=== PATIENT | male | born 1955 | race Caucasian/White ===

== ENCOUNTER 2018-01-24 15:18 | Emergency (ER) | payer SELFPAY ==
[~2018-01-24] VITALS: Ht 172.7 cm; Wt 76.0 kg
[~2018-01-24 15:18] MED LIST: Z.0.NO CURRENT MEDS
[2018-01-24 15:29] VITALS: BP 118/74; PULSE 75; RESP 18; TEMP 98.6; O2SAT 99
[2018-01-24] MEDS ORDERED: SODIUM CHLOR 0.9% 1000 ML INJ 1,000 ML IV SCH (16:57)
[2018-01-24] MEDS ORDERED: LIDOCAINE VISCOUS 2% SOLN 15 ML UDC PO ONE (17:00)
[2018-01-24] MEDS ORDERED: FAMOTIDINE 20 MG/2 ML VIAL IV PUSH ONE (17:00)
[2018-01-24] MEDS ORDERED: ALUMINUM/MAGNESIUM/SIMETH 30 ML CUP PO ONE (17:00)
[2018-01-24] MEDS ORDERED: ONDANSETRON HCL 4 MG/2 ML VIAL IVP ONE (17:00)
[2018-01-24] MEDS ORDERED: SODIUM CHLORIDE 0.9% FLUSH 10 ML FLUSH IV FLUSH PRN (17:00)
--- NOTE | 2018-01-24 17:06 | PD ---
HPI Chief Complaint: Abdominal Pain Time Seen by Provider: 16:51 Travel History International Travel<30 days: No Contact w/Intl Traveler<30days: No Traveled to known affect area: No History of Present Illness HPI 62-year-old homeless gentleman presents emergency department via EMS with complaints of abdominal pain and rash for 3 weeks. Patient is a chronic alcoholic. He states he drinks 4 beers daily. Patient smells of feces and urine. He denies fever, chills, or vomiting. No reports of diarrhea. No reports of acute wounds. Patient uses a walker to ambulate. Currently his stomach is not hurting. He has no known drug allergies. PFSH Past Medical History Arthritis: Yes Asthma: No Autoimmune Disease: No Blood Disorders: No Anxiety: No Depression: No Heart Rhythm Problems: No Cancer: No Cardiovascular Problems: Yes High Cholesterol: No Chemotherapy: No Chest Pain: No Congestive Heart Failure: No COPD: No Cerebrovascular Accident: No Diabetes: No Endocrine: No Glaucoma: No Genitourinary: No Headaches: No Hypertension: No Immune Disorder: No Kidney Stones: No Musculoskeletal: Yes (LEFT LEG WEAK) Neurologic: Yes Psychiatric: No Reproductive: No Respiratory: No Migraines: No Myocardial Infarction: Yes Radiation Therapy: No Renal Failure: No Seizures: Yes Sickle Cell Disease: No Thyroid Disease: No ?: Not Past Surgical History Abdominal Surgery: No AICD: No Arteriovenous Shunt: No Cardiac Surgery: No Ear Surgery: No Endocrine Surgery: No Eye Surgery: No Genitourinary Surgery: No Gynecologic Surgery: No Insulin Pump: No Joint Replacement: No Oral Surgery: No Pacemaker: No Thoracic Surgery: No Other Surgery: Yes (LEFT LEG SURGERY) Social History Alcohol Use: Yes (2-3 BEER DAILY) Tobacco Use: Yes (CIGARS 5 DAY) Substance Use: No Allergies-Medications (Allergen,Severity, Reaction): Coded Allergies: No Known Allergies (Verified Adverse Reaction, Unknown, 01/24/18) Reported Meds & Prescriptions Reported Meds & Active Scripts Active No Active Prescriptions or Reported Medications Review of Systems ROS Limitations: Intoxication, Poor Historian Except as stated in HPI: all other systems reviewed are Neg General / Constitutional: No: Fever Eyes: No: Visual changes HENT: No: Headaches Cardiovascular: No: Chest Pain or Discomfort Respiratory: No: Shortness of Breath Gastrointestinal: Positive: Abdominal Pain, No: Nausea, Vomiting, Diarrhea, Constipation, Indigestion, Dysphagia, Loss of Appetite Genitourinary: No: Urgency, Frequency, Dysuria Musculoskeletal: No: Pain Skin: Positive Rash, Positive Itching (See history of present illness) Neurologic: No: Weakness Psychiatric: No: Depression Endocrine: No: Polydipsia Hematologic/Lymphatic: No: Easy Bruising Physical Exam Narrative GENERAL: Patient appears intoxicated. He is disheveled and covered with urine and feces. SKIN: Warm and dry. Patient has obvious infestation of scabies with excoriations consistent. No active signs of cellulitis noted HEAD: Atraumatic. Normocephalic. EYES: Pupils equal and round. No scleral icterus. No injection or drainage. ENT: No nasal bleeding or discharge. Mucous membranes pink and moist. Pharynx is clear. NECK: Trachea midline. Supple CARDIOVASCULAR: Regular rate and rhythm. RESPIRATORY: No accessory muscle use. Clear to auscultation. Breath sounds equal bilaterally. GASTROINTESTINAL: Abdomen soft, mild epigastric tenderness, nondistended. No ascites. No CVA tenderness. Hepatic and splenic margins not palpable. MUSCULOSKELETAL: Extremities without clubbing, cyanosis, or edema. No obvious deformities. NEUROLOGICAL: Awake and alert. No obvious cranial nerve deficits. Motor grossly within normal limits. Five out of 5 muscle strength in the arms and legs. Normal speech. PSYCHIATRIC: Appropriate mood and affect; insight and judgment normal. Data Data Last Documented VS Vital Signs Date Time Temp Pulse Resp B/P (MAP) Pulse Ox O2 Delivery O2 Flow Rate FiO2 01/24/18 15:29 98.6 75 18 118/74 (89) 99 Orders Orders Complete Blood Count With Diff (01/24/18 16:57) Comprehensive Metabolic Panel (01/24/18 16:57) Lipase (01/24/18 16:57) Lactic Acid (01/24/18 16:57) Prothrombin Time / Inr (Pt) (01/24/18 16:57) Act Partial Throm Time (Ptt) (01/24/18 16:57) Urinalysis - C+S If Indicated (01/24/18 16:57) Abdomen, Flat & Upright (01/24/18 ) Iv Access Insert/Monitor (01/24/18 16:57) Ecg Monitoring (01/24/18 16:57) Oximetry (01/24/18 16:57) Ondansetron Inj (Zofran Inj) (01/24/18 17:00) Sodium Chlor 0.9% 1000 Ml Inj (Ns 1000 M (01/24/18 16:57) Sodium Chloride 0.9% Flush (Ns Flush) (01/24/18 17:00) Electrocardiogram (01/24/18 16:57) Famotidine Inj (Pepcid Inj) (01/24/18 17:00) Al-Mag Hy-Si 40-40-4 Mg/Ml Liq (Mag-Al P (01/24/18 17:00) Lidocaine 2% Viscous (Xylocaine 2% Visco (01/24/18 17:00) Alcohol (Ethanol) (01/24/18 16:57) Alcohol Withdrawal Asmt-Ciwa Q4HX18 (01/24/18 17:25) Flumazenil Inj (Romazicon Inj) (01/24/18 17:30) Lorazepam (Ativan) (01/24/18 17:30) Lorazepam Inj (Ativan Inj) (01/24/18 17:30) Lorazepam (Ativan) (01/24/18 17:30) Lorazepam Inj (Ativan Inj) (01/24/18 17:30) Lorazepam Inj (Ativan Inj) (01/24/18 17:30) Lorazepam Inj (Ativan Inj) (01/24/18 17:30) Magnesium (Mg) (01/24/18 18:13) Labs Laboratory Tests Test 01/24/18 17:20 01/24/18 17:22 01/24/18 18:00 White Blood Count 9.1 TH/MM3 Red Blood Count 3.17 MIL/MM3 Hemoglobin 11.0 GM/DL Hematocrit 32.5 % Mean Corpuscular Volume 102.6 FL Mean Corpuscular Hemoglobin 34.6 PG Mean Corpuscular Hemoglobin Concent 33.7 % Red Cell Distribution Width 15.6 % Platelet Count 227 TH/MM3 Mean Platelet Volume 8.2 FL Neutrophils (%) (Auto) 63.9 % Lymphocytes (%) (Auto) 23.9 % Monocytes (%) (Auto) 9.1 % Eosinophils (%) (Auto) 2.4 % Basophils (%) (Auto) 0.7 % Neutrophils # (Auto) 5.8 TH/MM3 Lymphocytes # (Auto) 2.2 TH/MM3 Monocytes # (Auto) 0.8 TH/MM3 Eosinophils # (Auto) 0.2 TH/MM3 Basophils # (Auto) 0.1 TH/MM3 CBC Comment DIFF FINAL Differential Comment Prothrombin Time 10.2 SEC Prothromb Time International Ratio 1.0 RATIO Activated Partial Thromboplast Time 25.8 SEC Blood Urea Nitrogen 21 MG/DL Creatinine 0.95 MG/DL Random Glucose 85 MG/DL Total Protein 8.1 GM/DL Albumin 3.1 GM/DL Calcium Level 8.5 MG/DL Alkaline Phosphatase 70 U/L Aspartate Amino Transf (AST/SGOT) 19 U/L Alanine Aminotransferase (ALT/SGPT) 17 U/L Total Bilirubin 0.2 MG/DL Sodium Level 139 MEQ/L Potassium Level 4.3 MEQ/L Chloride Level 108 MEQ/L Carbon Dioxide Level 25.3 MEQ/L Anion Gap 6 MEQ/L Estimat Glomerular Filtration Rate 80 ML/MIN Magnesium Level 1.9 MG/DL Lipase 134 U/L Ethyl Alcohol Level LESS THAN 3 MG/DL Lactic Acid Level 1.3 mmol/L Urine Color YELLOW Urine Turbidity CLEAR Urine pH 6.5 Urine Specific [place] 1.024 Urine Protein TRACE mg/dL Urine Glucose (UA) NEG mg/dL Urine Ketones NEG mg/dL Urine Occult Blood NEG Urine Nitrite NEG Urine Bilirubin NEG Urine Urobilinogen 2.0 MG/DL Urine Leukocyte Esterase NEG Urine WBC 2 /hpf Urine Hyaline Casts 1 /lpf Urine Mucus FEW /lpf Microscopic Urinalysis Comment CULT NOT INDICATED MDM Medical Decision Making Medical Screen Exam Complete: Yes Emergency Medical Condition: Yes Medical Record Reviewed: Yes Differential Diagnosis Chronic alcohol abuse. Scabies. Gastritis. Narrative Course Patient appears in no obvious distress Labs ordered including CBC, CMP, magnesium, lipase, lactic acid, serum alcohol level and urinalysis. IV access is obtained and the patient is given 4 mg Zofran, 20 mg Pepcid IV, GI cocktail p.o., 1000 mL's normal saline bolus. Patient is placed on the CIWA protocol. Abdominal KUB and upright is ordered. EKG shows sinus rhythm with occasional PVCs. This is reviewed with Dr. Bourgeois. Abdominal x-ray shows: Nonspecific bowel gas pattern. Significantly dilated bowel is not seen. There are a few air-fluid levels seen. Urinalysis is unremarkable. CBC shows mild anemia but otherwise unremarkable CMP and magnesium are within normal limits. Lipase is normal. Lactic acid is normal. Serum alcohol level is less than 3. Patient will be treated with ranitidine 150 mg twice daily for 2 weeks. Patient is given permethrin lotion to be used as directed with 1 refill. Patient to follow-up with [facility]. Recommend follow-up with Torin Riley for his EtOH abuse Diagnosis Primary Impression: Scabies infestation Additional Impression: Gastritis Qualified Codes: K29.20 - Alcoholic gastritis without bleeding Referrals: [facility] Patient Instructions: Diet for Stomach Ulcers and Gastritis (ED), General Instructions, Scabies (ED) Additional Instructions: Patient will be treated with ranitidine 150 mg twice daily for 2 weeks. Patient is given permethrin lotion to be used as directed with 1 refill. Patient to follow-up with [place] [facility]. Recommend follow-up with Torin Riley for his EtOH abuse Med/Other Pt SpecificInfo: Prescription(s) given Scripts No Active Prescriptions or Reported Meds Disposition: 01 DISCHARGE HOME Condition: Stable Shayan Church Jan 24, 2018 17:06
[2018-01-24] MEDS ORDERED: LORazepam 2 MG TAB PO PRN (17:30)
[2018-01-24] MEDS ORDERED: FLUMAZENIL 0.5 MG/5 ML VIAL IV PUSH PRN (17:30)
[2018-01-24] MEDS ORDERED: LORazepam 2 MG/ML VIAL IV PUSH PRN ×4 (17:30)
[2018-01-24] MEDS ORDERED: LORazepam 1 MG TAB PO PRN (17:30)
[2018-01-24 17:41] LABS: AUTOMATED NEUTROPHIL # 5.8 TH/MM3 (1.8-7.7); BASOPHIL # 0.1 TH/MM3 (0-0.2); BASOPHIL % 0.7 % (0.0-2.0); EOSINOPHIL # 0.2 TH/MM3 (0-0.4); EOSINOPHIL % 2.4 % (0.0-4.0); HEMATOCRIT 32.5 % (39.0-51.0); LYMPH % 23.9 % (9.0-44.0); LYMPHOCYTE # 2.2 TH/MM3 (1.0-4.8); MEAN CELL VOLUME 102.6 FL (80.0-100.0); MEAN CORPUSCULAR HEMOGLOBIN 34.6 PG (27.0-34.0); MEAN CORPUSCULAR HGB CONC 33.7 % (32.0-36.0); MEAN PLATELET VOLUME 8.2 FL (7.0-11.0); MONO % 9.1 % (0.0-8.0); MONOCYTE # 0.8 TH/MM3 (0-0.9); NEUT % 63.9 % (16.0-70.0); PLATELET COUNT 227 TH/MM3 (150-450); RED BLOOD COUNT 3.17 MIL/MM3 (4.50-5.90); RED CELL DISTRIBUTION WIDTH 15.6 % (11.6-17.2); WHITE BLOOD COUNT 9.1 TH/MM3 (4.0-11.0)
[2018-01-24 17:58] LABS: PROTHROMBIN TIME - PATIENT 10.2 SEC (9.8-11.6)
[2018-01-24 17:59] LABS: ALBUMIN 3.1 GM/DL (3.4-5.0); ALT (GPT) 17 U/L (12-78); AST (GOT) 19 U/L (15-37); BICARBONATE 25.3 MEQ/L (21.0-32.0); BLOOD UREA NITROGEN 21 MG/DL (7-18); CALCIUM 8.5 MG/DL (8.5-10.1); CHLORIDE 108 MEQ/L (98-107); CREATININE 0.95 MG/DL (0.60-1.30); GLOMERULAR FILTRATION RATE 80 ML/MIN (>89); GLUCOSE,RANDOM 85 MG/DL (74-106); SODIUM (NA) 139 MEQ/L (136-145)
[2018-01-24 18:01] LABS: ALKALINE PHOSPHATASE 70 U/L (45-117); TOTAL BILIRUBIN ADULT 0.2 MG/DL (0.2-1.0); TOTAL PROTEIN 8.1 GM/DL (6.4-8.2)
--- NOTE | 2018-01-24 18:13 | RADRPT ---
EXAM DATE/TIME: 01/24/2018 17:47 [place] COMPARISON: No previous studies available for comparison. INDICATIONS : Abdominal pain. MEDICAL HISTORY : None. SURGICAL HISTORY : None. ENCOUNTER: Initial ACUITY: 4 - 6 days PAIN SCORE: 10/10 LOCATION: Bilateral entire abdomen. FINDINGS: Supine and upright views of the abdomen were performed. The abdominal bowel gas pattern is nonspecif ic. There is an IVC filter. There are scattered air fluid levels are seen. No abnormal masses, lianet cifications, or organomegaly is seen. The visualized lower lungs are clear. No evidence of free int raperitoneal gas. There is degenerative change in the thoracic and lumbar spine. CONCLUSION: Nonspecific bowel gas pattern. Significantly dilated bowel is not seen. There are a few air-fluid lev els seen. Adeel Perez MD on January 24, 2018 at 18:10 Board Certified Radiologist. This report was verified electronically.
[2018-01-24 18:41] LABS: BILIRUBIN, URINE NEG (NEG); BLOOD, URINE NEG (NEG); GLUCOSE,URINE NEG (NEG); HYALINE CAST, URINE 1 /lpf (RARE); KETONE, URINE NEG (NEG); MUCUS URINE FEW /lpf (OCC); NITRITE,URINE NEG (NEG); PH, URINE 6.5 (5.0-8.5); URINE COLOR YELLOW (YELLW/STRAW); URINE LEUKOCYTE ESTERASE NEG (NEG)
[2018-01-24] MEDS ORDERED: PERM5CRE TOPICAL (19:12)
[2018-01-24] MEDS ORDERED: RANI150T PO (19:12)
--- NOTE | 2018-01-25 11:25 | EKG ---
Date Performed: 01/24/2018 Time Performed: 18:52:50 PTAGE: 62 years EKG: Sinus rhythm WITH MARKED SINUS ARRHYTHMIA BORDERLINE ECG PREVIOUS TRACING : 01/24/2018 18.08 Since the previous tracing, no significant change noted DOCTOR: Cam Acosta Interpretating Date/Time 01/28/2018 07:51:02
== END 2018-01-24 19:59 | disposition home or self-care (01) ==
LOC: NEPD 15:18
DX: B86 Scabies (principal); K29.20 Alcoholic gastritis without bleeding; F10.10 Alcohol abuse, uncomplicated; M19.90 Unspecified osteoarthritis, unspecified site; I25.2 Old myocardial infarction; F17.290 Nicotine dependence, other tobacco product, uncomplicated; Z59.0 Homelessness
CPT/HCPCS: 74019; 80053; 80307; 81001; 83605; 83690; 83735; 85025; 85610; 85730; 93005; 96374; 96375; 99285; J2405; J7030